=== PATIENT | male | born 1960 | race Caucasian/White ===

== ENCOUNTER → 2016-06-28 | Outpatient (CLI) | payer OTHER ==
[~2016-06-28] MED LIST: NICO21DI4; PERC5TAB8
--- NOTE | 2016-06-28 15:37 | REP ---
CHEST, TWO VIEWS: HISTORY: Neoplasm. COMPARISON: 12/07/2012 There is elevation of the right hemidiaphragm with loss of volume in the right hemithorax. A minimal increase in interstitial markings is present in the lungs consistent with chronic interstitial fibrosis. The heart is normal in size. The pulmonary vasculature is normal in appearance. There is an old fracture of the right 6th rib. The bony structure is intact. A surgical clip is present in the right paratracheal area. IMPRESSION: Chronic interstitial fibrosis. Signed by Arnoldo Ogden MD 06/28/2016 03:38 P
== END ==
LOC: M SMT 15:05
PROVIDERS: ATTEND Internal Medicine Pulmonary Disease
DX: Z85.118 Personal history of other malignant neoplasm of bronchus and lung (principal); J84.112 Idiopathic pulmonary fibrosis

== ENCOUNTER 2022-06-04 08:59 | Emergency (ER) | payer OTHER ==
[~2022-06-04] VITALS: Ht 172.7 cm; Wt 81.8 kg
[2022-06-04] MEDS ORDERED: IBUP200C28 PO (09:18)
[2022-06-04] MEDS ORDERED: ACET325C5 PO (09:18)
[2022-06-04] MEDS ORDERED: ACETAMINOPHEN 325 MG TAB PO ONE (12:15)
[2022-06-04] MEDS ORDERED: KETOROLAC 30 MG/ML 1ML VIAL IM ONE (12:15)
[2022-06-04] MEDS ORDERED: CYCL-707 PO (14:06)
[2022-06-04] MEDS ORDERED: KETO10TAB PO (14:06)
[2022-06-04 14:21] VITALS: BP 140/72
== END 2022-06-04 14:40 | disposition home or self-care (01) ==
LOC: M ED 08:59
DX: M51.37 Other intervertebral disc degeneration, lumbosacral region (principal); M54.31 Sciatica, right side; S39.012A Strain of muscle, fascia and tendon of lower back, initial encounter; X50.1XXA Overexertion from prolonged static or awkward postures, initial encounter

== ENCOUNTER → 2022-08-31 | Outpatient (CLI) | payer OTHER ==
[~2022-08-31] MED LIST changes: +ACET325C5 PO; +CYCL-707 PO; +IBUP200C28 PO; +KETO10TAB PO
== END ==
LOC: M RAD 16:04
PROVIDERS: ATTEND Internal Medicine Pulmonary Disease
DX: Z12.2 Encounter for screening for malignant neoplasm of respiratory organs (principal); Z87.891 Personal history of nicotine dependence; K44.9 Diaphragmatic hernia without obstruction or gangrene; M47.9 Spondylosis, unspecified; J84.10 Pulmonary fibrosis, unspecified

== ENCOUNTER → 2023-10-12 | Outpatient (CLI) | payer OTHER | LOC: M RAD 14:30 | PROVIDERS: ATTEND Internal Medicine Pulmonary Disease | DX: Z12.2 Encounter for screening for malignant neoplasm of respiratory organs (principal); Z85.118 Personal history of other malignant neoplasm of bronchus and lung; Z87.891 Personal history of nicotine dependence ==

== ENCOUNTER → 2024-01-12 | Outpatient (CLI) | payer OTHER | LOC: M PLALAB 10:52 | PROVIDERS: ATTEND Urology | DX: R97.20 Elevated prostate specific antigen [PSA] (principal) ==

== ENCOUNTER → 2024-01-12 | Outpatient (REF) | payer OTHER | LOC: M LABSMT 10:27 | PROVIDERS: ATTEND Urology | DX: R97.20 Elevated prostate specific antigen [PSA] (principal) ==

== ENCOUNTER → 2024-03-22 | Outpatient (REF) | payer OTHER | LOC: M SMT 12:52 | PROVIDERS: ATTEND Urology | DX: R97.20 Elevated prostate specific antigen [PSA] (principal) ==

== ENCOUNTER 2025-02-11 11:08 | Emergency (ER) | payer OTHER ==
[~2025-02-11] VITALS: Ht 172.7 cm; Wt 88.0 kg
[2025-02-11 12:57] LABS: BASO # 0.1 10^3/uL (0.0-0.2); BASO % 0.7 % (0.0-1.0); EOS # 0.1 10^3/uL (0.0-0.5); EOS % 0.9 % (0.0-3.0); LYMPH # 2.3 10^3/uL (1.5-5.0); LYMPH % 20.3 % (24.0-44.0); MONO # 1.1 10^3/uL (0.0-0.8); MONO % 9.6 % (2.0-8.0); NEUTROPHILS # 7.6 10^3/uL (1.5-8.5); NEUTROPHILS % 68.2 % (36.0-66.0); PLATELET COUNT, AUTOMATED 358 10^3/uL (150-450)
[2025-02-11 14:37] LABS: ALT/SGPT 35 U/L (7.0-40); AST/SGOT 29 U/L (<34); CALCIUM LEVEL 9.4 MG/DL (8.3-10.6); CARBON DIOXIDE LEVEL 27 MMOL/L (20-31); CHLORIDE LEVEL 103 MMOL/L (98-107); CREATININE FOR GFR 0.81 MG/DL (0.70-1.30); GLOMERULAR FILTRATION RATE > 90.0 (>49); POTASSIUM SERUM 5.0 MMOL/L (3.5-5.1); SODIUM LEVEL 139 MMOL/L (136-145)
[2025-02-11] MEDS ORDERED: ISOVUE-370 76% 100 ML VIAL As Ordered ONE (14:53)
[2025-02-11 14:59] LABS: KETONE, URINE AUTO RFX TRACE mg/dL (NEGATIVE); LEUKOCYTE ESTERASE UR AUTO RFX NEGATIVE (NEGATIVE); MUCUS, URINE RFX SMALL (NEGATIVE); NITRITE, URINE AUTO RFX NEGATIVE (NEGATIVE); RBC, URINE AUTO RFX 1 /HPF (0-3); SQUAM EPITHELIAL CELL UR AURFX 0 /HPF (0-6); WBC, URINE AUTO RFX 7 /HPF (0-3)
[2025-02-11] MEDS ORDERED: CIPR500T39 PO (15:50)
[2025-02-11] MEDS ORDERED: PHEN-372 PO (15:50)
[2025-02-11 16:08] VITALS: BP 146/87; TEMP 98; O2SAT 98
== END 2025-02-11 16:09 | disposition home or self-care (01) ==
LOC: M ED 11:08
DX: N30.00 Acute cystitis without hematuria (principal); N40.1 Benign prostatic hyperplasia with lower urinary tract symptoms; J98.11 Atelectasis; K76.89 Other specified diseases of liver; K44.9 Diaphragmatic hernia without obstruction or gangrene; K57.30 Diverticulosis of large intestine without perforation or abscess without bleeding; M16.0 Bilateral primary osteoarthritis of hip; K42.9 Umbilical hernia without obstruction or gangrene; I70.0 Atherosclerosis of aorta; Z79.1 Long term (current) use of non-steroidal anti-inflammatories (NSAID); Z79.2 Long term (current) use of antibiotics; Z79.899 Other long term (current) drug therapy
CPT/HCPCS: 36415; 74177; 80048; 80076; 81001; 83605; 83690; 85025; 99284; Q9967

== ENCOUNTER 2025-02-14 11:22 | Inpatient (IN) | payer OTHER ==
[~2025-02-14] VITALS: Ht 172.7 cm; Wt 88.1 kg
[~2025-02-14 11:22] MED LIST changes: +CIPR500T39 PO; +PHEN-372 PO
[2025-02-14 11:28] LABS: BASO # 0.1 10^3/uL (0.0-0.2); BASO % 0.5 % (0.0-1.0); EOS # 0.1 10^3/uL (0.0-0.5); EOS % 0.7 % (0.0-3.0); LYMPH # 2.6 10^3/uL (1.5-5.0); LYMPH % 18.9 % (24.0-44.0); MONO # 1.1 10^3/uL (0.0-0.8); MONO % 8.2 % (2.0-8.0); NEUTROPHILS # 9.9 10^3/uL (1.5-8.5); NEUTROPHILS % 71.3 % (36.0-66.0); PLATELET COUNT, AUTOMATED 425 10^3/uL (150-450)
[2025-02-14 11:38] LABS: ERYTHROCYTE SEDIMENTATION RATE 77 mm/hr (0-20)
[2025-02-14 11:59] LABS: ALT/SGPT 26.0 U/L (7.0-40); AST/SGOT 23.0 U/L (<34)
[2025-02-14] MEDS: NS (Normal Saline) 0.9% 1,000 ML IV ONE ×2 (12:05→13:20)
[2025-02-14] MEDS ORDERED: ISOVUE-370 76% 100 ML VIAL As Ordered ONE (12:07)
[2025-02-14 12:23] LABS: C REACTIVE PROTEIN QUANTITATIV 14.61 MG/DL (<1.0)
[2025-02-14 12:30] LABS: KETONE, URINE AUTO RFX 1+ mg/dL (NEGATIVE); LEUKOCYTE ESTERASE UR AUTO RFX TRACE (NEGATIVE); MUCUS, URINE RFX SMALL (NEGATIVE); NITRITE, URINE AUTO RFX POSITIVE (NEGATIVE); RBC, URINE AUTO RFX 3 /HPF (0-3); SQUAM EPITHELIAL CELL UR AURFX 0 /HPF (0-6); WBC, URINE AUTO RFX 20 /HPF (0-3)
[2025-02-14] MEDS: cefTRIAXone SOD 2 GM in DEXTROSE 5% (D5W) ADV/MINI-BAG 50 ML IV ONE (12:55)
[2025-02-14] MEDS ORDERED: ACET-683 PO (14:12)
[2025-02-14] MEDS ORDERED: CIPR-249 PO (14:12)
[2025-02-14] MEDS ORDERED: PHEN1TAB74 PO (14:12)
[2025-02-14] MEDS ORDERED: HOME MED LIST COMPLETE! XX SCH (14:15)
[2025-02-14] MEDS ORDERED: ACETAMINOPHEN 325 MG TAB PO PRN (14:45)
[2025-02-14 15:59] VITALS: BP 121/66; TEMP 98.1; O2SAT 92
[2025-02-14 20:18] VITALS: BP 122/69; TEMP 99; O2SAT 98
[2025-02-14] MEDS: KETOROLAC 30 MG/ML 1 ML VIAL IV PRN (20:33)
[2025-02-15 04:29] VITALS: BP 118/75; TEMP 98.2; O2SAT 78
[2025-02-15 07:09] LABS: BASO # 0.1 10^3/uL (0.0-0.2); BASO % 0.6 % (0.0-1.0); EOS # 0.1 10^3/uL (0.0-0.5); EOS % 1.2 % (0.0-3.0); LYMPH # 1.7 10^3/uL (1.5-5.0); LYMPH % 14.4 % (24.0-44.0); MONO # 0.9 10^3/uL (0.0-0.8); MONO % 8.1 % (2.0-8.0); NEUTROPHILS # 8.7 10^3/uL (1.5-8.5); NEUTROPHILS % 75.3 % (36.0-66.0); PLATELET COUNT, AUTOMATED 399 10^3/uL (150-450)
[2025-02-15 07:31] LABS: C REACTIVE PROTEIN QUANTITATIV 9.83 MG/DL (<1.0)
[2025-02-15 07:36] LABS: CALCIUM LEVEL 8.3 MG/DL (8.3-10.6); CARBON DIOXIDE LEVEL 24 MMOL/L (20-31); CHLORIDE LEVEL 106 MMOL/L (98-107); CREATININE FOR GFR 0.70 MG/DL (0.70-1.30); GLOMERULAR FILTRATION RATE > 90.0 (>49); POTASSIUM SERUM 4.3 MMOL/L (3.5-5.1); SODIUM LEVEL 140 MMOL/L (136-145)
[2025-02-15 12:00] VITALS: BP 110/54; TEMP 97.9; O2SAT 97
[2025-02-15] MEDS: cefTRIAXone SOD 2 GM in DEXTROSE 5% (D5W) ADV/MINI-BAG 50 ML IV SCH (13:15)
[2025-02-15] MEDS ORDERED: KETO-204 PO (13:39)
[2025-02-15] MEDS ORDERED: CEFD300CAP PO (13:39)
[2025-02-15] MEDS ORDERED: OXYB5TAB14 PO (13:39)
== END 2025-02-15 14:30 | disposition home or self-care (01) | DRG 501 ==
LOC: M ED 11:22 → M ED INP 13:16 → M MSPAV 14:55
PROVIDERS: ADMIT Internal Medicine Nephrology; ATTEND Internal Medicine Nephrology
DX: N41.3 Prostatocystitis (principal); K21.9 Gastro-esophageal reflux disease without esophagitis; N40.0 Benign prostatic hyperplasia without lower urinary tract symptoms; N52.9 Male erectile dysfunction, unspecified; Z85.118 Personal history of other malignant neoplasm of bronchus and lung; Z79.899 Other long term (current) drug therapy; R97.20 Elevated prostate specific antigen [PSA]